=== PATIENT | male | born 1950 | race Native Hawaiian/Other Pacific Islander ===

== ENCOUNTER → 2017-01-22 10:24 | Outpatient (CLI) | payer OTHER ==
[~2017-01-22 10:24] MED LIST: ALLO100T22 PO; ASA LOW DOSE81 MG OR; D31000 UNIT OR; FISH OIL300 MG OR; FURO40TA93 PO; LEVO0.0529 PO; LISI10TA11 PO; OMEP20CA PO
== END | disposition expired ==
LOC: AMB 10:24